=== PATIENT | male | born 1945 | race Caucasian/White ===

== ENCOUNTER 2017-12-21 09:25 | Emergency (ER) | payer OTHER ==
[2017-12-21] MEDS: IV NORMAL SALINE 1000ML BAG 1,000 ML IV (10:03)
== END 2017-12-21 11:23 | disposition home or self-care (01) ==
LOC: ER 09:25
DX: R55 Syncope and collapse (principal); I10 Essential (primary) hypertension; E78.00 Pure hypercholesterolemia, unspecified; F17.200 Nicotine dependence, unspecified, uncomplicated; Z88.0 Allergy status to penicillin
CPT/HCPCS: 93005; 96360; 99284-25; J7030